=== PATIENT | female | born 1975 | race Caucasian/White ===

== ENCOUNTER 2024-07-03 13:00 | Outpatient (CLI) | payer OTHER, SELFPAY ==
--- NOTE | ~2024-07-03 | US_ITS ---
EXAM: PELVIC ULTRASOUND HISTORY: pelvic pain COMPARISON: None. FINDINGS: UTERUS: Surgically absent. RIGHT OVARY: The right ovary is unremarkable in size measuring 4.4 x 4.2 x 4.4 cm. Dopplerable flow is identified. Within the right ovary is an avascular anechoic well-circumscribed structure measuring 4.4 x 3.5 x 3. 7 cm, consistent with an ovarian cyst. LEFT OVARY: Surgically absent. No free fluid is identified within the pelvis. IMPRESSION: 4.4 cm simple cyst within the right ovary, for which ultrasound follow-up imaging is recommended to c onfirm stability and to assess for interval growth in 6-12 months. Reviewed, dictated and finalized at location A. P CLERK IMPRESSION: 4.4 cm simple cyst within the right ovary, for which ultrasound follow-up imagi ng is recommended to confirm stability and to assess for interval growth in 6-1 2 months.
== END 2024-07-03 13:01 | disposition home or self-care (01) ==
PROVIDERS: PCP Family Medicine; Visit Provider Obstetrics & Gynecology
DX: N83.201 Unspecified ovarian cyst, right side (principal)
CPT/HCPCS: 76830; 76856